=== PATIENT | female | born 1965 | race Caucasian/White ===

== ENCOUNTER 2018-04-01 17:06 | Emergency (ER) | payer OTHER ==
[2018-04-01 17:22] VITALS: BP 119/86
--- NOTE | 2018-04-01 17:35 | EDPHY ---
H & P Stated Complaint: 03/15/2018 inital injury, rt quad pain, pain has increased last 2 days Time Seen by Provider: 04/01/18 17:09 HPI/ROS: Chief Complaint: Right thigh pain HPI: 53-year-old wounds been having right thigh pain for the last 2 weeks. She states 2 weeks ago that she got struck on the thigh when her slammed a door cancer. She got her foot caught in a door at that time. She has been walking with some pain. She states she feels like she has a bruise in the right outer 5th thigh. She has been ambulating without any difficulty. She normally takes Percocet gabapentin for chronic back pain but these have not been helping. No numbness or weakness. No swelling. No chest pain or shortness of breath. No rash. No fevers or chills. No cough. She did have an appointment at [facility] today but was unable to find their office. ROS: 10 point Review of Systems is negative except as noted in the HPI. PMH: Chronic back pain Social History: Positive smoking, denies alcohol, Family History: non-contributory Physical Exam: General: Awake, alert, no acute distress, appears older than stated age Right leg, hip, nontender, full range without pain. Knee, nontender, full range of motion without pain, ankle, nontender, full range of motion without pain. She has tenderness right lateral thigh in the lateral foot extensors. Is not warm to touch. There is no palpable mass. She has full flexion and extension strength of her knee. She has no calf swelling or tenderness. She has normal perfusion with 2+ dorsalis pedis pulses. Capillary refills less than 2 sec. She is neurologically intact. Skin: No rash - Personal History LMP (Females 10-55): Over 28 Days Ago Current Tetanus Diphtheria and Acellular Pertussis (TDAP): Yes Tetanus Vaccine Date: 11/2017 - Medical/Surgical History Hx Asthma: No Hx Chronic Respiratory Disease: Yes Hx Diabetes: Yes Hx Cardiac Disease: No Hx Renal Disease: No Hx Cirrhosis: No Hx Alcoholism: No Hx HIV/AIDS: No Hx Splenectomy or Spleen Trauma: No Other PMH: Med hx-anxiety/depression,cholesterol,bulging disc L3-L4,COPD stage 2. Surg-left knee x2 - Social History Smoking Status: Heavy smoker Constitutional: Initial Vital Signs Temperature (C) 37.0 C 04/01/18 17:16 Heart Rate 87 04/01/18 17:16 Respiratory Rate 16 04/01/18 17:16 Blood Pressure 119/86 H 04/01/18 17:16 O2 Sat (%) 94 04/01/18 17:16 O2 Delivery Mode Room Air Allergies/Adverse Reactions: codeine Allergy (Intermediate, Verified 04/01/18 17:12) pruitis Penicillins Allergy (Intermediate, Verified 04/01/18 17:11) Hives Home Medications: Medication Instructions Recorded Advair 250/50 (*) 04/01/18 Gabapentin 04/01/18 Methocarbamol 04/01/18 Percocet 5/325 (*) 04/01/18 Simvastatin 04/01/18 Varaylar 04/01/18 busPIRone [Buspar (*)] 04/01/18 chlorproMAZINE HCL 04/01/18 Medical Decision Making ED Course/Re-evaluation: 53-year-old woman with 0.5 pain after getting struck by a door 2 weeks ago. She has been ambulating with some discomfort. She has no problem weight- bearing. She has no bony tenderness or deformity. No findings consistent with DVT or thromboembolic disease. She has normal perfusion. She is completely neurologically intact neuro findings suggestive of acute spinal cord pathology. She has been taking Percocet and gabapentin for chronic back pain without relief. I have recommended she continue with ibuprofen acetaminophen. I have referred to follow up with [facility]. Did not feel that x-rays are indicated at this time. She is otherwise neurologically intact there is no evidence of acute musculoskeletal vascular or neurologic process at this time. Departure - Departure Disposition: Home, Routine, Self-Care Clinical Impression: Contusion Condition: Good Instructions: Contusion in Adults (ED) Additional Instructions: You may alternate acetaminophen with ibuprofen as needed for pain. Follow up with clinic at 3-4 days for further evaluation. Return to the emergency department for numbness, difficulty walking, altered sensation or cold feeling leg, or any other concerns. Referrals: [facility] [Other] - As per Instructions
== END 2018-04-01 17:43 | disposition home or self-care (01) ==
LOC: CED 17:06
DX: S70.11XA Contusion of right thigh, initial encounter (principal); F17.200 Nicotine dependence, unspecified, uncomplicated; J44.9 Chronic obstructive pulmonary disease, unspecified; E11.9 Type 2 diabetes mellitus without complications; W23.0XXA Caught, crushed, jammed, or pinched between moving objects, initial encounter

== ENCOUNTER → 2018-12-06 | Outpatient (CLI) | payer OTHER | LOC: CIMAGING 08:36 | PROVIDERS: ATTEND Internal Medicine | DX: M25.511 Pain in right shoulder (principal); E78.5 Hyperlipidemia, unspecified | CPT/HCPCS: 73030-PO ==